=== PATIENT | female | born 1965 | race African-American/Black ===

== ENCOUNTER 2021-09-03 10:00 | Emergency (ER) | payer SELFPAY | END 2021-09-03 11:01 | disposition home or self-care (01) | LOC: NAV ERS 10:00 | DX: S46.811A Strain of other muscles, fascia and tendons at shoulder and upper arm level, right arm, initial encounter (principal); I10 Essential (primary) hypertension; E78.00 Pure hypercholesterolemia, unspecified; Z79.899 Other long term (current) drug therapy; X58.XXXA Exposure to other specified factors, initial encounter | CPT/HCPCS: 99283 ==